=== PATIENT | female | born 1980 | race Two or more races ===

== ENCOUNTER 2023-06-24 09:56 | Emergency (ER) | payer OTHER, SELFPAY ==
[2023-06-24 09:56] VITALS: BMI 26.4
[2023-06-24 10:00] VITALS: BP 121/85
--- NOTE | 2023-06-24 10:26 | ED.GENMED ---
History of Present Illness
General
Chief Complaint: Chest Pain
Source: patient
Exam Limitations: none
Time Seen by Provider: 06/24/23 10:05
Nursing documentation reviewed up to this point in time: agreed with
Travel History
Have you had any contact with someone who has COVID-19?: No
Do you have any symptoms of coronavirus? Fever > 100 degrees, chills, cough, shortness of breath, sore throat, loss of taste or smell, muscle aches, or headache?: No
History of Present Illness
History of Present Illness:
Patient without any significant past medical history, presents to ED secondary to intermittent left-sided chest pain along with headache over the past 3 days. Denies fever or chills. Denies nausea, vomiting, or diarrhea. Denies shortness of
breath. Chest pain described as 'sharp, prickly', lasting minutes with spontaneous resolution. Denies any alleviating or exacerbating factors. Denies trauma. Denies back pain. Denies leg pain or swelling. Denies recent travel or surgery.
Denies previous history of similar symptoms. Denies recent illness. Denies family history of heart disease or blood clots.
Past History
Past History
ED Past Medical History: None
ED Past Surgical History: and Gynecological (Tubal ligation)
Social History
Tobacco: Non-smoker
Alcohol: None
Personal:
Living: with family
Review of Systems
Review of Systems
Allergies reviewed?: Yes
All Other Systems: ROS reviewed and negative except as documented in HPI and ROS
Constitutional: Reports no symptoms
EENT: Reports no symptoms
Respiratory: Reports no symptoms
Cardiac: Reports chest pain
ABD/GI: Reports no symptoms
: Reports no symptoms
Musculoskeletal: Reports no symptoms
Skin: Reports no symptoms
Neurological: Reports headache
Phy Exam
Physical Exam
Physical Exam:
Physical Exam
General: no apparent distress, not acutely ill. afebrile
Head: nc/at. eomi
Neck: supple. no meningeal signs. normal posterior pharynx
Heart: s1/s2 regular rate and rhythm, no murmur. equal radial pulses.
Lungs: no acute respiratory distress. clear bilaterally. chest wall nontender to palpation.
Abdomen: normal bowel sounds. not tender.
Neuro: alert and oriented. no focal neurological deficits
Skin: no rash
Psychiatric: well kept. interactive and cooperative
Extremities: no edema. no calf tenderness.
Scores
Heart Score for Chest Pain Patients
STEMI patient?: No
History: Slightly or Non-Suspicious
ECG: Normal
Age: </= 45 years
Risk Factors: No Risk Factors
Troponin: </= Normal Limit
Heart Score for Chest Pain Patients: 0
Heart Score Risk: 2.5% MACE over next 6 weeks
Course
Orders/Labs/Results
Orders:
Orders
06/24/23 09:59
ECG [Electrocardiogram (*1)] Urgent
Reason for Study: Chest Pain
EKG- Treatment ONCE
06/24/23 10:25
Acetaminophen [Tylenol] 650 mg PO NOW STA
Test Result ONCE
CR Chest - 2 Views Urgent
Comment:
Reason For Exam: chest pain
06/24/23 11:10
Basic Metabolic Panel Urgent
Complete Blood Count/No Diff Urgent
D-Dimer Urgent
HCG, Serum Qualitative Screen Urgent
Magnesium Urgent
Troponin I Urgent
06/24/23 12:24
COVID-19 Antigen Urgent
Source: Nasal Swab
Influenza A+B Rapid Molecular Urgent
MEGAN Source: Nasal Swab
Specimen Description:
Abnormal Lab Results
06/24/23
11:10
Glucose 106 H mg/dl
(70-99)
06/24/23 11:10
06/24/23 11:10
Vital Signs
Initial and Last Documented VS:
Initial Vital Signs
Temp Pulse Resp BP Pulse Ox
98.1 F 85 18 121/85 98
06/24/23 10:00 06/24/23 10:00 06/24/23 10:00 06/24/23 10:00 06/24/23 10:00
Last Documented Vital Signs
Temp Pulse Resp BP Pulse Ox
98.1 F 85 18 126/80 100
06/24/23 10:00 06/24/23 10:00 06/24/23 10:00 06/24/23 12:23 06/24/23 11:31
MDM/Problems Addressed
MDM/Problems Addressed:
History and exam inconsistent with acute coronary syndrome, along with unremarkable workup. Patient presentation likely secondary to nonspecific viral illness. Patient will be discharged home in stable condition with recommendation to follow-up
with PCP as needed.
*EKG
Interpreted by ED Provider?: Yes
EKG Intrepretation Date: 06/24/23
Heart Rate: 75
Rate: normal
Rhythm: sinus
[place]: normal axis
Interval: normal interval
*Critical Care Note
Total Time (30-74mins, 75-104mins- exclusive of procedures): Not Applicable
ED Attending Note
-
Portions of this chart may have been created with voice recognition software.� Occasional wrong word or��sound alike� substitutions may have occurred due to the inherent limitations of voice recognition software.
Discharge Plan
Departure
Patient Disposition: Home (Routine Discharge)
Date of Disposition: 06/24/23
Time of Disposition: 12:09
Patient with high blood pressure during this ER visit?: Yes
Condition: Good
Covid-19: Not Applicable
Discharge Problem:
Chest pain, Headache
Instructions: Headache, Adult (DC), Chest Pain PCP Follow Up
Prescriptions:
No Action
Vitamins
1 tab PO DAILY
Referrals:
Bebo Back DO [Family Provider] -
Activity Restrictions/Additional Instructions:
As discussed, please follow-up with your primary care physician with any further concerns. Please return to ED with worsening symptoms.
Interventions
Interventions:
*Risk Screen - Suicide Last Done: 06/24/23 10:36
*General Assessment Last Done: 06/24/23 10:36
*Neglect/Abuse Screening Last Done: 06/24/23 10:36
ED- Fall Risk Assessment Last Done: 06/24/23 12:50
*ED COVID-19 Vaccine History Last Done: 06/24/23 10:03
*Nursing Disposition Last Done: 06/24/23 12:50
ED- Cardiac Assessment Last Done: 06/24/23 10:36
Discharge Date and Time
Discharge Date/Time: 06/24/23 12:51
[2023-06-24] MEDS: TYLENOL 650 MG PO (10:42)
[2023-06-24 11:18] LABS: Hematocrit 37.9 % (37.0-47.0); Hemoglobin 13.2 g/dL (12.0-16.0); Mean Corp Hgb Conc. 34.8 g/dL (33.0-37.0); Mean Corpuscular Hgb 28.4 pg (27.0-31.0); Mean Corpuscular Volume 81.7 fL (81.0-99.0); Mean Platelet Volume 9.8 fL (7.4-10.4); Platelet Count 263 10^3/uL (130-400); Red Blood Cell Count 4.64 10^6/uL (4.20-5.40); Red Cell Dist. Width 13.5 % (11.5-14.5); White Blood Cell Count 7.6 10^3/uL (4.8-10.8)
[2023-06-24 11:34] LABS: D-Dimer < 0.27 ug/mlFEU (0.00-0.50)
[2023-06-24 11:36] LABS: HCG, Serum Qualitative Screen Negative
[2023-06-24 11:38] LABS: Blood Urea Nitrogen 13 mg/dl (7-17); Calcium 9.5 mg/dl (8.4-10.2); Carbon Dioxide 26 mmol/L (22-30); Chloride 102 mmol/L (98-107); Estimated Creatinine Clearance 100 ml/min; Glucose 106 mg/dl (70-99); Magnesium 2.1 mg/dl (1.6-2.3); Potassium 3.8 mmol/L (3.5-5.1); Sodium 139 mmol/L (135-145); eGFR > 60.00
[2023-06-24 11:46] LABS: Troponin I < 0.012 ng/ml
[2023-06-24 12:23] VITALS: BP 126/80
[2023-06-24 12:50] LABS: COVID-19 Antigen Negative (Negative)
== END 2023-06-24 12:51 | disposition home or self-care (01) ==
LOC: EMR 09:56
PROVIDERS: EMERGENCY PHYSICIAN Emergency Medicine; FAMILY PHYSICIAN Family Medicine
DX: R07.89 Other chest pain (principal); R51.9 Headache, unspecified; R03.0 Elevated blood-pressure reading, without diagnosis of hypertension
CPT/HCPCS: 99285; 71046; 80048; 83735; 84484; 84703; 85027; 85379; 87502; 87811; 93005